=== PATIENT | male | born 1950 ===

== ENCOUNTER 2016-08-04 11:03 | Day surgery (SDC) | payer OTHER ==
[2016-07-25 14:39] VITALS: BMI 31.0
[2016-08-04] MEDS ORDERED: ceFAZolin IV 1 gm in Dextrose 2 GM/100 ML BAG IVPB ONE (13:07)
[2016-08-04] MEDS ORDERED: Bupivacaine HCl 0.25% PF (10 ml) Inj ONE (13:07)
[2016-08-04] MEDS ORDERED: Lidocaine 2% w Epi 1:100,000 Inj IJ ONE (13:08)
[2016-08-04] MEDS ORDERED: Propofol 10 mg/ml Inj (20 ML) ONE (13:09)
[2016-08-04] MEDS ORDERED: Midazolam 2 MG/2 ML VIAL ONE (13:09)
[2016-08-04] MEDS ORDERED: Rocuronium 10 mg/ml (10 ml) ONE (14:39)
[2016-08-04] MEDS ORDERED: Morphine 4 MG/ML VIAL ONE (15:03)
--- NOTE | 2016-08-04 15:06 | PCM.SURG1 ---
Surgeon's Initial Post Op Note - Surgeon's Notes Surgeon: Leonel Japanese Interpreter: Robert PGY2Johnathan Type of Anesthesia: General Endo, Local Pre-Operative Diagnosis: Right inguinal hernia Operative Findings: Indirect hernia Post-Operative Diagnosis: same Operation Performed: Laparoscopic TEP repair of R inguinal hernia w. mesh Specimen/Specimens Removed: none Estimated Blood Loss: EBL {In ML}: 10 Blood Products Given: N/A Drains Used: No Drains Post-Op Condition: Good Date of Surgery/Procedure: 08/04/16 Time of Surgery/Procedure: 15:05
[2016-08-04] MEDS ORDERED: Oxycodone/Acetaminophen 5/325 mg Tab PO PRN (15:07)
[2016-08-04] MEDS ORDERED: HYDROmorphone 0.5 mg/0.5 ml ISec IVP PRN (15:09)
[2016-08-04 17:00] VITALS: RESP 18
[2016-08-04 17:54] VITALS: BP 110/70; PULSE 75; TEMP 98; O2SAT 96
--- NOTE | 2016-08-05 08:50 | OP ---
PROCEDURE DATE: 08/04/2016 PREOPERATIVE DIAGNOSES: Right inguinal hernia, possible bilateral inguinal hernia. POSTOPERATIVE DIAGNOSES: Right indirect inguinal hernia containing omentum. There no evidence of Left inguinal hernia. OPERATIONS DONE: 1. Laparoscopic extraperitoneal Right inguinal hernia repair.. 2. Exploratory laparoscopy for identification of the bilateral inguinal hernia. SURGEON: Zaki Castaneda MD. TECHNOLOGY ARCHITECT: KASI Sexton; and Go Jones, PGY-2 resident. ANESTHESIA: General endotracheal tube anesthesia. ESTIMATED BLOOD LOSS: Around 10 mL. DRAINS: None. PATHOLOGY: None. COMPLICATIONS: None. INTRAOPERATIVE FINDINGS: The patient had a Right inguinal hernia containing omentum and there was no evidence of Left inguinal hernia on exploratory laparoscopy. INTRAOPERATIVE STEPS: This 65-year-old male was diagnosed with a Right inguinal hernia, and patient also had pain on the left groin and the patient was consented for the laparoscopic Right inguinal hernia repair with mesh, possible bilateral. The patient was brought to the OR, placed supine on the operating table. After induction of the anesthesia, abdomen was prepped and draped in a usual sterile fashion. The infraumbilical transverse 1.5 cm incision was made. After incising skin and subcutaneous tissue, the anterior rectus sheath was incised. Rectus muscles were retracted laterally and retrorectal dissection was done. A balloon dissector was placed and extraperitoneal dissection was done with a balloon. After that pneumo was created in the preperitoneal space. After that, a Right inguinal hernia was identified. The patient had extensive scar tissue. To determine the left inguinal hernia, the right upper quadrant incision was made and, using Visiport technique, the peritoneal cavity was entered and pneumo was created into the peritoneal cavity and exploratory laparoscopy was done to identify the Left inguinal hernia. The patient found to have a large indirect right inguinal hernia containing omentum. The patient had no evidence of inguinal hernia on the left side. After that, the 5 mm port was kept in and, again, pneumo was created into the preperitoneal space. The lateral medial dissection was done, inferior dissection was done, and the hernial sac was reduced, was from the vas deferens as well as the spermatic cord vessels. The sac appeared to be extremely large and complete sac. The sac was divided distally and the sac was reduced back into the peritoneal cavity. After proper dissection, the mesh was implanted. After proper implantation of mesh, all the ports were taken out under vision. Pneumo was deflated. The exploratory laparoscopic port was also taken out. The umbilical port was closed in 2 layers, the fascia with 0 Vicryl interrupted sutures and skin with a 4-0 Monocryl. Dry sterile dressing was applied. The patient tolerated the procedure well. Count of instruments and gauze was correct. There was no apparent complication. The patient was extubated in the OR and sent to the postanesthesia care in stable condition. Zaki Castaneda MD cc: [id number] TT: 08/04/2016 16:22:21 manny KING
== END 2016-08-04 17:50 | disposition home or self-care (01) ==
LOC: C.SDS 11:03
PROVIDERS: ATTEND Surgery Surgical Critical Care
DX: K40.90 Unilateral inguinal hernia, without obstruction or gangrene, not specified as recurrent (principal)
CPT/HCPCS: 49650; J0690; J2250; J2270; J2704; J3010

== ENCOUNTER 2017-05-04 09:39 | Emergency (ER) | payer OTHER ==
[2017-05-04 09:41] VITALS: BMI 31.1
[2017-05-04 09:47] VITALS: TEMP 97.9; O2SAT 98
--- NOTE | 2017-05-04 10:29 | RAD ---
HISTORY: r/o infiltrate COMPARISON: Chest x-ray performed 07/17/16 TECHNIQUE: Chest PA and lateral FINDINGS: LUNGS: No focal consolidation. Please note that chest x-ray has limited sensitivity for the detection of pulmonary masses. PLEURA: No significant pleural effusion identified. No definite pneumothorax . CARDIOVASCULAR: Heart size appears within normal limits. Atherosclerotic calcifications of the aortic knob. OSSEOUS STRUCTURES: Degenerative changes of the spine. VISUALIZED UPPER ABDOMEN: Mild elevation of the right hemidiaphragm. OTHER FINDINGS: None. IMPRESSION: No focal consolidation, significant pleural effusion, or definite pneumothorax identified.
[2017-05-04 11:16] VITALS: BP 135/75; PULSE 78; RESP 16
--- NOTE | 2017-05-04 13:21 | C.PDOC ---
History Of Present Illness 66 yr old male presents to the ER for evaluation of cough with white phelgem for the past 1 week. Patient reports his grandchildren were recently diagnosed with flu. Also reports of mild chills. Denies fever, chest pain, SOB, nausea, vomiting, abdominal pain, weakness or numbness. Time Seen by Provider: 05/04/17 10:13 Chief Complaint (Nursing): Cough, Cold, Congestion History Per: Patient History/Exam Limitations: no limitations Onset/Duration Of Symptoms: Days (1 week) Current Symptoms Are (Timing): Still Present Sick Contacts (Context): Family Member(s) Past Medical History Reviewed: Historical Data, Nursing Documentation, Vital Signs Vital Signs: Last Vital Signs Temp 97.9 F 05/04/17 09:47 Pulse 78 05/04/17 11:15 Resp 16 05/04/17 11:15 BP 135/75 05/04/17 11:15 Pulse Ox 98 05/04/17 13:24 - Medical History PMH: Fractures, HTN, Hypercholesterolemia Family History: States: No Known Family Hx - Social History Hx Alcohol Use: No Hx Substance Use: No - Immunization History Hx Tetanus Toxoid Vaccination: Yes Hx Influenza Vaccination: No Hx Pneumococcal Vaccination: Yes Review Of Systems Except As Marked, All Systems Reviewed And Found Negative. Constitutional: Negative for: Fever Cardiovascular: Negative for: Chest Pain Respiratory: Positive for: Cough, Sputum (white). Negative for: Shortness of Breath Gastrointestinal: Negative for: Nausea, Vomiting, Abdominal Pain Neurological: Negative for: Weakness, Numbness Physical Exam - Physical Exam Appears: Non-toxic, No Acute Distress Skin: Warm, Dry, No Rash Oral Mucosa: Moist Throat: Normal, No Erythema, No Exudate, No Drooling Chest: Symmetrical, No Tenderness Cardiovascular: Rhythm Regular, No Murmur Respiratory: Normal Breath Sounds, No Rales, No Rhonchi, No Stridor, No Wheezing Extremity: Normal ROM, No Swelling Neurological/Psych: Oriented x3, Normal Speech ED Course And Treatment O2 Sat by Pulse Oximetry: 98 (RA) Pulse Ox Interpretation: Normal - Other Rad CXR X-Ray: Viewed By Me, Read By Radiologist Interpretation: HISTORY: r/o infiltrate. COMPARISON: Chest x-ray performed . TECHNIQUE: Chest PA and lateral. FINDINGS: LUNGS: No focal consolidation. Please note that chest x-ray has limited sensitivity for the detection of pulmonary masses. PLEURA: No significant pleural effusion identified. No definite pneumothorax . CARDIOVASCULAR: Heart size appears within normal limits. Atherosclerotic calcifications of the aortic knob. OSSEOUS STRUCTURES: Degenerative changes of the spine. VISUALIZED UPPER ABDOMEN: Mild elevation of the right hemidiaphragm. OTHER FINDINGS: None. IMPRESSION: No focal consolidation, significant pleural effusion, or definite pneumothorax identified. Medical Decision Making Medical Decision Making: PLAN: * CXR Disposition - Disposition Referrals: [facility] Sara Peña, [Non-Staff] - Disposition: HOME/ ROUTINE Disposition Time: 10:20 Condition: GOOD Additional Instructions: Thank you for letting us take care of you today. The emergency medical care you received today was directed at your acute symptoms. If you were prescribed any medication, please fill it and take as directed. It may take several days for your symptoms to resolve. Return to the Emergency Department if your symptoms worsen, do not improve, or if you have any other problems. Please contact your doctor or call one of the physicians/clinics you have been referred to that are listed on the Patient Visit Information form that is included in your discharge packet. Bring any paperwork you were given at discharge with you along with any medications you are taking to your follow up visit. Our treatment cannot replace ongoing medical care by a primary care provider (PCP) outside of the emergency department. Thank you for allowing the [facility] [employer] team to be part of your care today. Follow up with your doctor in 3-4 days for re-evaluation and further management. Charanjit por dejarnos atenderlo hoy. La atencin mdica de emergencia que recibi hoy estaba dirigida a janet sntomas agudos. Si le prescribieron algn medicamento, llnelo y tome segn las indicaciones. Janet sntomas pueden tardar varios herrera en resolverse. Regrese al Departamento de Emergencia si janet s ntomas empeoran, no mejoran o si tiene algn otro problema. Comunquese con lozano mdico o llame a mary de los mdicos / clnicas a los que carlos sido referido que figura en el formulario de Informacin de visita del paciente que se incluye en lozano paquete de arsh. Traiga todos los documentos que recibi al momento del arsh junto con los medicamentos que est tomando en lozano visita de seguimiento. Nuestro tratamiento no puede reemplazar la atencin mdica en curso por parte de un proveedor de atencin primaria (PCP) fuera del departamento de emergencias. Charanjit por permitir que el equipo de [facility] sea parte de lozano cuidado hoy. Maria Del Carmen un seguimiento con lozano mdico en 3-4 herrera para nelli reevaluacin y administracin adicional. Instructions: Upper Respiratory Infection (ED) Forms: Gen Discharge Inst Irish Print Language: NICARAGUAN - Clinical Impression Clinical Impression: Upper respiratory infection - Scribe Statement The provider has reviewed the documentation as recorded by the Scribe Zoie Lucero Provider Attestation: All medical record entries made by the Scribe were at my direction and personally dictated by me. I have reviewed the chart and agree that the record accurately reflects my personal performance of the history, physical exam, medical decision making, and the department course for this patient. I have also personally directed, reviewed, and agree with the discharge instructions and disposition.
== END 2017-05-04 11:15 | disposition home or self-care (01) ==
LOC: C.ER 09:39
DX: J06.9 Acute upper respiratory infection, unspecified (principal); I10 Essential (primary) hypertension; E78.00 Pure hypercholesterolemia, unspecified